=== PATIENT | male | born 1980 | race Caucasian/White ===

== ENCOUNTER 2019-03-23 01:35 | Outpatient (CLI) | payer SELFPAY ==
[2019-03-23 10:45] LABS: HEMOGLOBIN A1C 4.9 % (4.5-6.2)
[2019-03-23 11:01] LABS: CHOL/HDL RATIO 2.5 (0.00-4.99)
== END 2019-03-23 23:59 | disposition home or self-care (01) ==
LOC: HW HEART 01:35
DX: Z13.6 Encounter for screening for cardiovascular disorders (principal)
CPT/HCPCS: 36415

== ENCOUNTER 2025-07-09 12:47 | Outpatient (CLI) | payer SELFPAY ==
--- NOTE | 2025-07-09 16:31 | RADIOLOGY REPORT ---
EXAM: CT CT CALCIUM SCORE ONLY DATE OF SERVICE: 07/09/2025 01:32 PM ORDERING PHYSICIAN: ZOE TALAVERA REASON FOR EXAM: ENCOUNTER FOR SCREENING FOR CARDIOVASCULAR DISORDERS TECHNIQUE: CT of the heart was performed without IV contrast. COMPARISON: None FINDINGS: The heart is top-normal in size. There are normal origins of the coronary arteries. There is no coronary artery calcium. There is no pericardial effusion. The imaged lungs are clear. IMPRESSION: No coronary artery calcium.
== END 2025-07-09 23:59 | disposition home or self-care (01) ==
LOC: RAD 12:47
PROVIDERS: ATTEND Nurse Practitioner Family
DX: Z13.6 Encounter for screening for cardiovascular disorders (principal)
CPT/HCPCS: 70450; 75571